=== PATIENT | female | born 1995 | race Caucasian/White ===

== ENCOUNTER 2017-07-13 15:47 | Emergency (ER) | payer MEDICAID ==
[2017-07-13] MEDS ORDERED: Acetaminophen 325 MG TAB ONE (17:37)
== END 2017-07-13 17:48 | disposition home or self-care (01) ==
LOC: ERS 15:47
DX: F43.20 Adjustment disorder, unspecified (principal); S00.03XA Contusion of scalp, initial encounter; F84.0 Autistic disorder; G40.909 Epilepsy, unspecified, not intractable, without status epilepticus; F41.9 Anxiety disorder, unspecified; F31.9 Bipolar disorder, unspecified; Z79.899 Other long term (current) drug therapy; X58.XXXA Exposure to other specified factors, initial encounter
CPT/HCPCS: 99284

== ENCOUNTER 2017-08-11 10:26 | Outpatient (CLI) | payer OTHER | END 2017-08-11 10:27 | disposition home or self-care (01) | LOC: CTENTCT 10:26 | PROVIDERS: ATTEND Specialist | DX: H91.90 Unspecified hearing loss, unspecified ear (principal) | CPT/HCPCS: 70480 ==